=== PATIENT | female | born 1975 | race African-American/Black ===

== ENCOUNTER 2022-06-10 15:13 | Emergency (ER) | payer MEDICAID ==
[~2022-06-10] VITALS: Ht 172.7 cm; Wt 104.3 kg
[2022-06-10 15:13] VITALS: BP_SYST 126
--- NOTE | 2022-06-10 20:04 | NUR ---
Patient to ER bed 05 to gown for evaluation. Side rails up.
== END 2022-06-10 20:04 | disposition left against medical advice (07) ==
LOC: SED 15:13
DX: R20.2 Paresthesia of skin (principal); Z53.21 Procedure and treatment not carried out due to patient leaving prior to being seen by health care provider
CPT/HCPCS: 93005